=== PATIENT | male | born 1955 | race Caucasian/White ===

== ENCOUNTER 2018-05-28 08:32 | Emergency (ER) | payer BC, OTHER ==
[2018-05-28 08:42] VITALS: BP 131/79
--- NOTE | 2018-05-28 09:20 | UC ---
Abdominal Pain Male HPI - HPI Summary HPI Summary: Gradual onset of right lower quadrant abdominal pain and right flank pain 4 days ago. Getting worse especially when he lays flat on his back. Has had some mild nausea this morning and decreased appetite. No fever. Denies any urinary symptoms. No personal or family history of kidney stones of which he is aware. - History of Current Complaint Chief Complaint: UCBackPain Stated Complaint: BACK PAIN Time Seen by Provider: 05/28/18 08:47 Hx Obtained From: Patient, Family/Cardiology Specialist - Onset/Duration: Gradual Onset, Lasting Days, Still Present Timing: Constant Severity Initially: Mild Severity Currently: Moderate Pain Intensity: 7 Pain Scale Used: 0-10 Numeric Location: Discrete At: RLQ Radiates: Yes Radiates to: Flank Character: Colicy, Sharp Aggravating Factor(s): Other - LAYING SUPINE Alleviating Factor(s): Position Associated Signs And Symptoms: Positive: Back Pain, Decreased Appetite, Nausea. Negative: Fever - Allergies/Home Medications Allergies/Adverse Reactions: Allergies Allergy/AdvReac Type Severity Reaction Status Date / Time seasonal Allergy Mild Sneezing Uncoded 05/28/18 08:41 Home Medications: Home Medications Carvedilol TAB* [Coreg TAB*] 1 tab PO DAILY 05/28/18 [History Confirmed 05/28/18 ] Ranolazine (Nf) [Ranexa] 500 mg PO BID 05/28/18 [History Confirmed 05/28/18] Rosuvastatin Calcium [Crestor] 1 tab PO DAILY 05/28/18 [History Confirmed ] amLODIPine TAB* [Norvasc 5 mg TAB*] 2.5 mg PO DAILY 05/28/18 [History Confirmed 05/28/18] PMH/Surg Hx/FS Hx/Imm Hx Cardiovascular History: Cardiac Disease - 4V CABG, Hypertension, Myocardial Infarction - Surgical History Surgical History: Yes Surgery Procedure, Year, and Place: BYPASS. ORTHO SURGERIES - Family History Known Family History: Positive: Hypertension - Social History Alcohol Use: drinks 12-18 beers/week, but not daily Substance Use Type: None Smoking Status (MU): Former Smoker Type: Cigarettes Have You Smoked in the Last Year: No When Did the Patient Quit Smoking/Using Tobacco: 05/28/1997 - Immunization History Most Recent Tetanus Shot: UTD Review of Systems All Other Systems Reviewed And Are Negative: Yes Constitutional: Positive: Negative Respiratory: Positive: Negative Cardiovascular: Positive: Negative Gastrointestinal: Positive: Abdominal Pain, Nausea Genitourinary: Positive: Negative Musculoskeletal: Positive: Myalgia - RIGHT BACK PAIN Physical Exam Triage Information Reviewed: Yes Appearance: Well-Nourished, Pain Distress - MILD/MODERATE Vital Signs: Initial Vital Signs Temp 97.6 F 05/28/18 08:35 Pulse 82 05/28/18 08:35 Resp 18 05/28/18 08:35 BP 131/79 05/28/18 08:35 Pulse Ox 97 05/28/18 08:35 Laboratory Tests 05/28/18 08:55 POC Urine Color Dark yellow POC Urine Clarity Clear POC Urine pH 5.5 POC Ur Specif [place] >= 1.030 POC Urine Protein 2+ A POC Ur Glucose (UA) Negative POC Urine Ketones 1+ A POC Urine Blood Trace-intact A POC Urine Nitrite Negative POC Urine Bilirubin 2+ A POC Urine Urobilinogen 0.2 POC U Leukocyte Esteras Negative Vital Signs Reviewed: Yes Eyes: Positive: Conjunctiva Clear ENT: Positive: Hearing grossly normal Neck: Positive: Supple Respiratory: Positive: No respiratory distress, No accessory muscle use Cardiovascular: Positive: Pulses Normal Abdomen Description: Positive: Soft, Other: - RLQ TTP. NO RIGIDITY OR REBOUND. NEG OBTURATOR. EQUIVOCAL PSOAS SIGN. MILD DISCOMFORT WITH PERCUSSION OVER RLQ. Negative: CVA Tenderness (R), CVA Tenderness (L), Distended, Guarding Bowel Sounds: Positive: Present Musculoskeletal: Positive: No Edema Neurological: Positive: Alert Psychological: Positive: Normal Response To Family, Age Appropriate Behavior Skin: Negative: Rashes Abd Pain Male Course/Dx - Course Course Of Treatment: CONCERN FOR KIDNEY STONE OR APPENDICITIS. TO [facility] [place] ED BY PRIVATE CAR. PT OFFERED TRANSPORT TO THE ED BY AMBULANCE BUT DECLINES. ADVISED THAT BY NOT TRAVELING IN A MONITORED SETTING HE COULD BE RISKING WORSENING OF HIS CONDITION THAT COULD POSE A THREAT TO HIS LIFE, HEALTH AND MEDICAL SAFETY. HE VERBALIZES UNDERSTANDING AND CONTINUES TO DECLINE AMBULANCE TRANSFER. - Differential Dx/Clinical Impression Provider Diagnosis: RLQ abdominal pain Discharge - Sign-Out/Discharge Documenting (check all that apply): Patient Departure All imaging exams completed and their final reports reviewed: No Studies - Discharge Plan Condition: Stable Disposition: TRANS [facility] Patient Education Materials: Abdominal Pain (ED) Referrals: Mamadou Dobson MD [Primary Care Provider] - Additional Instructions: GO DIRECTLY TO THE [facility] [place] [facility] ED FROM HERE FOR FURTHER EVALUATION. YOU HAVE DECLINED TRANSFER TO THE ED BY AMBULANCE. BE ADVISED THAT BY NOT TRAVELING IN A MONITORED SETTING YOU COULD BE RISKING WORSENING OF YOUR CONDITION THAT COULD POSE A THREAT TO YOUR LIFE, HEALTH AND MEDICAL SAFETY. - Billing Disposition and Condition Condition: STABLE Disposition: Trans Higher Lvl of Care Fac
== END 2018-05-28 09:20 | disposition short-term general hospital (02) ==
LOC: UCEAST 08:32
DX: R10.31 Right lower quadrant pain (principal); R11.0 Nausea; R63.8 Other symptoms and signs concerning food and fluid intake; I10 Essential (primary) hypertension; I25.2 Old myocardial infarction; Z91.09 Other allergy status, other than to drugs and biological substances; Z79.899 Other long term (current) drug therapy; Z95.1 Presence of aortocoronary bypass graft; Z87.891 Personal history of nicotine dependence
CPT/HCPCS: 81003; 99212; G0463

== ENCOUNTER 2018-05-28 09:37 | Emergency (ER) | payer BC, MEDICARE ==
[2018-05-28] MEDS ORDERED: Ondansetron INJ* 2 MG/ML VIAL IV ONE (10:23)
[2018-05-28] MEDS ORDERED: Ketorolac INJ* 30 MG/ML 1 ML VIAL IV PUSH ONE (10:24)
[2018-05-28 10:30] LABS: ABS Basophils 0 10^3/ul (0-0.2); ABS Eosinophils 0.1 10^3/ul (0-0.6); ABS Monocytes 0.9 10^3/ul (0-0.8); ABS Neutrophils 4.6 10^3/ul (1.5-7.7); ABS Nucleated RBC 0 10^3/ul; Eosinophil % 1.1 %; Hematocrit 43 % (42-52); Hemoglobin 14.6 g/dl (14.0-18.0); Lymphocyte % 15.1 %; Mean Corpuscular HGB Conc 34 g/dl (31-36); Mean Corpuscular Hemoglobin 32 pg (27-31); Mean Corpuscular Volume 95 fL (80-94); Mean Platelet Volume 8.3 fL (7.4-10.4); Nucleated Red Blood Cells % 0.1; Platelet Count 167 10^3/ul (150-450); Red Blood Count 4.53 10^6/ul (4.00-5.40); Red Cell Distribution Width 12 % (10.5-15); White Blood Count 6.7 10^3/ul (3.5-10.8)
[2018-05-28 10:34] LABS: INR 0.98 (0.77-1.02)
[2018-05-28 10:48] LABS: Albumin 4.2 g/dL (3.2-5.2); Albumin/Globulin Ratio 1.4 (1-3); BUN/Creatinine Ratio 14.8 (8-20); C Reactive Protein 1.26 mg/L (<8.01); Calcium 9.7 mg/dL (8.6-10.3); EGFR African American 72.4 (>60); EGFR Non-African American 59.8 (>60); Globulin 3.1 g/dL (2-4); Magnesium 1.9 mg/dL (1.9-2.7); Potassium 4.6 mmol/L (3.5-5.0); Total Bilirubin 0.7 mg/dL (0.2-1.0); Total Protein 7.3 g/dL (6.4-8.9)
[2018-05-28 12:11] VITALS: BP 133/88
--- NOTE | 2018-05-28 12:37 | ED ---
Back Pain - HPI Summary HPI Summary: Patient is a 62-year-old male with contributory significant PMH presenting to the ED with right-sided low back pain radiating into the groin, and down the posterior thigh with some involvement to the anterior thigh 4 days. He states sitting from a lying position makes the pain worse, standing straight makes the pain better. Pain is currently rated a 9/10 intermittent, sharp throbbing and radiating. Denies any bladder or bowel dysfunction. Denies any foot drop. Denies any numbness or tingling to the ipsilateral leg. Denies any gross hematuria, UTI symptoms or left-sided back pain. No history of kidney stones. He states this happened in the past but was on the left side which resolved spontaneously. He has not tried any [id number] medications for relief. - History of Current Complaint Chief Complaint: EDFlankPain Stated Complaint: ABD PAIN Time Seen by Provider: 05/28/18 10:00 Hx Obtained From: Patient Onset/Duration: Sudden Onset Onset/Duration: Started Hours Ago Timing: Constant Back Pain Location: Is Discrete @ - right sided lower back pain Pain Intensity: 2 Pain Scale Used: 0-10 Numeric Character: Aching Aggravating Symptom(s): Movement, Lifting, Bending Alleviating Symptom(s): Rest, Position Associated Signs And Symptoms: Negative: Swelling, Redness, Bruising, Bladder Incontinence, Bowel Incontinence, Weight Loss - Risk Factors AAA Risk Factors: Negative TAD Risk Factors: Negative Cauda Equina Risk Factors: Negative Epidural Abscess Risk Factors: Negative - Allergies/Home Medications Allergies/Adverse Reactions: Allergies Allergy/AdvReac Type Severity Reaction Status Date / Time seasonal Allergy Mild Sneezing Uncoded 05/28/18 08:41 Home Medications: Home Medications Aspirin 325 mg PO DAILY 05/28/18 [History Confirmed 05/28/18] Multivitamin [Multiple Vitamins] 1 tab PO DAILY 05/28/18 [History Confirmed 06/15] Olmesartan Medoxomil [Benicar] 40 mg PO DAILY 05/28/18 [History Confirmed ] Ranolazine (NF) [Ranexa (NF)] 500 mg PO BID 05/28/18 [History Confirmed 05/28/18 ] PMH/Surg Hx/FS Hx/Imm Hx Previously Healthy: Yes Cardiovascular History: Reports: Hx Hypertension - Surgical History Surgery Procedure, Year, and Place: BYPASS. ORTHO SURGERIES - Immunization History Hx Pertussis Vaccination: No Immunizations Up to Date: Yes Infectious Disease History: No Infectious Disease History: Denies: Traveled Outside the [place] in Last 30 Days - Family History Known Family History: Positive: Hypertension - Social History Occupation: Unemployed Lives: With Family Alcohol Use: None Hx Substance Use: No Substance Use Type: Reports: None Hx Tobacco Use: Yes Smoking Status (MU): Former Smoker Type: Cigarettes Have You Smoked in the Last Year: No Review of Systems Constitutional: Negative Negative: Fever, Chills, Fatigue, Skin Diaphoresis Negative: Palpitations, Chest Pain Negative: Shortness Of Breath, Cough Genitourinary: Negative Positive: no symptoms reported, see HPI. Negative: dysuria, discharge, incontinence Positive: Arthralgia Skin: Negative Neurological: Negative All Other Systems Reviewed And Are Negative: Yes Physical Exam Triage Information Reviewed: Yes Vital Signs On Initial Exam: Initial Vitals Temp Pulse Resp BP Pulse Ox 97 F 70 18 149/90 95 05/28/18 09:43 05/28/18 09:43 05/28/18 09:43 05/28/18 09:43 05/28/18 09:43 Vital Signs Reviewed: Yes Appearance: Positive: Well-Appearing, Well-Nourished Skin: Positive: Warm, Skin Color Reflects Adequate Perfusion Head/Face: Positive: Normal Head/Face Inspection Eyes: Positive: EOMI, GORAN, Conjunctiva Clear Neck: Positive: Supple, No Lymphadenopathy Respiratory/Lung Sounds: Positive: Clear to Auscultation, Breath Sounds Present Cardiovascular: Positive: RRR, Pulses are Symmetrical in both Upper and Lower Extremities Musculoskeletal: Positive: Strength/ROM Intact Neurological: Positive: Speech Normal Psychiatric: Positive: Normal, Affect/Mood Appropriate AVPU Assessment: Alert Diagnostics - Vital Signs Vital Signs Temp Pulse Resp BP Pulse Ox 05/28/18 12:11 99.1 F 66 16 133/88 96 05/28/18 11:15 70 141/89 94 05/28/18 11:00 68 94 05/28/18 10:15 68 121/89 96 05/28/18 10:00 70 96 05/28/18 09:45 74 149/90 97 05/28/18 09:44 72 95 05/28/18 09:43 97 F 70 18 149/90 95 - Laboratory Lab Results: Lab Results 05/28/18 05/28/18 05/28/18 Range/Units 10:01 10:01 10:01 WBC 6.7 (3.5-10.8) 10^3/ul RBC 4.53 (4.00-5.40) 10^6/ul Hgb 14.6 (14.0-18.0) g/dl Hct 43 (42-52) % MCV 95 H (80-94) fL MCH 32 H (27-31) pg MCHC 34 (31-36) g/dl RDW 12 (10.5-15) % Plt Count 167 (150-450) 10^3/ul MPV 8.3 (7.4-10.4) fL Neut % (Auto) 69.8 % Lymph % (Auto) 15.1 % [place] % (Auto) 13.5 % Eos % (Auto) 1.1 % Baso % (Auto) 0.5 % Absolute Neuts (auto) 4.6 (1.5-7.7) 10^3/ul Absolute Lymphs (auto) 1.0 (1.0-4.8) 10^3/ul Absolute Monos (auto) 0.9 H (0-0.8) 10^3/ul Absolute Eos (auto) 0.1 (0-0.6) 10^3/ul Absolute Basos (auto) 0 (0-0.2) 10^3/ul Absolute Nucleated RBC 0 10^3/ul Nucleated RBC % 0.1 INR (Anticoag Therapy) 0.98 (0.77-1.02) Sodium 135 (135-145) mmol/L Potassium 4.6 (3.5-5.0) mmol/L Chloride 104 (101-111) mmol/L Carbon Dioxide 26 (22-32) mmol/L Anion Gap 5 (2-11) mmol/L BUN 18 (6-24) mg/dL Creatinine 1.22 H (0.67-1.17) mg/dL Est GFR ( Amer) 72.4 (>60) Est GFR (Non-Af Amer) 59.8 (>60) BUN/Creatinine Ratio 14.8 (8-20) Glucose 118 H (70-100) mg/dL Lactic Acid (0.5-2.0) mmol/L Calcium 9.7 (8.6-10.3) mg/dL Magnesium 1.9 (1.9-2.7) mg/dL Total Bilirubin 0.70 (0.2-1.0) mg/dL AST 23 (13-39) U/L ALT 22 (7-52) U/L Alkaline Phosphatase 59 (34-104) U/L Total Creatine Kinase 54 (10-223) U/L C-Reactive Protein 1.26 (<8.01) mg/L Total Protein 7.3 (6.4-8.9) g/dL Albumin 4.2 (3.2-5.2) g/dL Globulin 3.1 (2-4) g/dL Albumin/Globulin Ratio 1.4 (1-3) Lipase 24 (11.0-82.0) U/L 05/28/18 Range/Units 10:01 WBC (3.5-10.8) 10^3/ul RBC (4.00-5.40) 10^6/ul Hgb (14.0-18.0) g/dl Hct (42-52) % MCV (80-94) fL MCH (27-31) pg MCHC (31-36) g/dl RDW (10.5-15) % Plt Count (150-450) 10^3/ul MPV (7.4-10.4) fL Neut % (Auto) % Lymph % (Auto) % [place] % (Auto) % Eos % (Auto) % Baso % (Auto) % Absolute Neuts (auto) (1.5-7.7) 10^3/ul Absolute Lymphs (auto) (1.0-4.8) 10^3/ul Absolute Monos (auto) (0-0.8) 10^3/ul Absolute Eos (auto) (0-0.6) 10^3/ul Absolute Basos (auto) (0-0.2) 10^3/ul Absolute Nucleated RBC 10^3/ul Nucleated RBC % INR (Anticoag Therapy) (0.77-1.02) Sodium (135-145) mmol/L Potassium (3.5-5.0) mmol/L Chloride (101-111) mmol/L Carbon Dioxide (22-32) mmol/L Anion Gap (2-11) mmol/L BUN (6-24) mg/dL Creatinine (0.67-1.17) mg/dL Est GFR ( Amer) (>60) Est GFR (Non-Af Amer) (>60) BUN/Creatinine Ratio (8-20) Glucose (70-100) mg/dL Lactic Acid 0.9 (0.5-2.0) mmol/L Calcium (8.6-10.3) mg/dL Magnesium (1.9-2.7) mg/dL Total Bilirubin (0.2-1.0) mg/dL AST (13-39) U/L ALT (7-52) U/L Alkaline Phosphatase (34-104) U/L Total Creatine Kinase (10-223) U/L C-Reactive Protein (<8.01) mg/L Total Protein (6.4-8.9) g/dL Albumin (3.2-5.2) g/dL Globulin (2-4) g/dL Albumin/Globulin Ratio (1-3) Lipase (11.0-82.0) U/L Result Diagrams: 05/28/18 10:01 05/28/18 10:01 Lab Statement: Any lab studies that have been ordered have been reviewed, and results considered in the medical decision making process. Back Pain Course/Dx - Course Course Of Treatment: During the course of treatment of the patient's evaluated for right-sided flank pain radiating into the groin. CT abdomen and pelvis obtained which shows no nephrolithiasis or hydronephrosis. Upon further examination, it appears the patient has pain radiating to the anterior and posterior thigh as well as into the groin. Worse with sitting up, better with lying flat. After given Toradol in the ED, patient feels improved. He will be diagnosed with sciatica, lumbar radiculopathy. He is encouraged continuing the Toradol 4 days, prednisone 5 days and moist heat to the area. He will return if he develops any other symptoms. UA shows trace blood. - Diagnoses Provider Diagnoses: Lumbar radicular pain Discharge - Sign-Out/Discharge Documenting (check all that apply): Patient Departure - Discharge Plan Condition: Stable Disposition: HOME Prescriptions: Ketorolac TAB * [Toradol TAB *] 10 mg PO Q6H #16 tab predniSONE TAB* [Deltasone TAB*] 50 mg PO DAILY #5 tab Patient Education Materials: Lumbar Radiculopathy (ED), Lower Back Exercises ( ED) Referrals: Mamadou Dobson MD [Primary Care Provider] - Additional Instructions: Moist heat to the area Gentle stretches Prednisone once daily x 5 days Toradol four times daily (take next dose at approximately 2pm) DO NOT TAKE IBUPROFEN/NAPROXEN OR OTHER NSAIDS WHILE TAKING THIS MEDICATION - Billing Disposition and Condition Condition: STABLE Disposition: Home
== END 2018-05-28 12:10 | disposition home or self-care (01) ==
LOC: ED 09:37
DX: M54.5 Low back pain (principal); Z87.891 Personal history of nicotine dependence; R16.0 Hepatomegaly, not elsewhere classified; I70.90 Unspecified atherosclerosis; Z79.82 Long term (current) use of aspirin; I10 Essential (primary) hypertension
CPT/HCPCS: 36415; 74176; 80053; 82550; 83605; 83690; 83735; 85025; 85610; 86140; 96374; 96375; 99283; J1885; J2405

== ENCOUNTER 2018-11-11 18:43 | Inpatient (IN) | payer BC, MEDICARE ==
[2018-11-11] MEDS ORDERED: Aspirin 81 mg CHEW TAB* 81 MG TAB.CHEW PO ONE (18:49)
[2018-11-11] MEDS ORDERED: Heparin for STEMI(*) 5,000 UNITS/ML 1 ML VIAL IV ONE ×2 (18:49→18:52)
[2018-11-11] MEDS ORDERED: Ticagrelor* 90 MG TAB PO ONE ×2 (18:49→18:52)
--- NOTE | 2018-11-11 18:53 | ED ---
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 Per EMS: Patient was at dinner, having a beer, when he had sudden- onset CP radiating across his chest, to his shoulder, and to his teeth and jaw. Pert PMHx: MD in 2008, CABG and multiple stents treated in [place]. Associated sx : diaphoresis. His sx tonight are not as bad in 2008. EMS gave patient fluids and aspirin [address] Dobson is his PCP. 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 Gill, cardio, previously. ED provider met patient and EMS immediately upon arrival. - History of Current Complaint Hx Obtained From: Patient Onset/Duration: Started Minutes Ago, Atraumatic, Still Present Timing: Constant Current Severity: Severe Pain Intensity: 8 Pain Scale Used: 0-10 Numeric Chest Pain Location: Diffuse - across chest Chest Pain Radiates: Yes Chest Pain Radiates To:: Shoulder, Jaw, Other - teeth Character: Crushing Alleviating Factor(s): Other: - morphine in ED Associated Signs and Symptoms: Positive: Diaphoresis - Allergy/Home Medications Allergies/Adverse Reactions: Allergies Allergy/AdvReac Type Severity Reaction Status Date / Time seasonal Allergy Mild Sneezing Uncoded 05/28/18 08:41 Home Medications: Home Medications Montelukast Sodium TAB* [Singulair TAB*] 10 mg PO DAILY 11/11/18 [History Confirmed 11/11/18] PMH/Surg Hx/FS Hx/Imm Hx Previously Healthy: No Cardiovascular History: Reports: Hx Hypertension, Hx Myocardial Infarction, Other Cardiovascular Problems/Disorders - CABG, stents - Surgical History Surgery Procedure, Year, and Place: BYPASS. ORTHO SURGERIES - Family History Known Family History: Positive: Hypertension - Social History Occupation: Employed Full-time Lives: With Family Alcohol Use: None Hx Substance Use: No Substance Use Type: Reports: None Hx Tobacco Use: Yes Smoking Status (MU): Former Smoker Type: Cigarettes Have You Smoked in the Last Year: No Review of Systems Positive: Skin Diaphoresis Positive: Chest Pain Musculoskeletal: Other - pos: jaw/teeth pain, shoulder pain - radiating from chest All Other Systems Reviewed And Are Negative: Yes Physical Exam - Summary Physical Exam Summary: Appearance: The patient is well-nourished in no acute distress and in no acute pain. Skin: The skin is warm, diaphoretic, and skin color reflects adequate perfusion. HEENT: The head is normocephalic and atraumatic. The pupils are equal and reactive. The conjunctivae are clear and without drainage. Nares are patent and without drainage. Mouth reveals moist mucous membranes and the throat is without erythema and exudate. The external ears are intact. The ear canals are patent and without drainage. The tympanic membranes are intact. Neck: the neck is supple with full range of motion and non-tender. There are no carotid bruits. There is no neck vein distension. Respiratory: Chest is non-tender. Lungs are clear to auscultation and breath sounds are symmetrical and equal. Cardiovascular: Heart is regular rate and rhythm. There is no murmur or rub auscultated. There is no peripheral edema and pulses are symmetrical and equal. Abdomen: The abdomen is soft and non-tender. There are normal bowel sounds heard in all four quadrants and there is no organomegaly palpated. Musculoskeletal: There is no back tenderness noted. Extremities are non-tender with full range of motion. There is good capillary refill. There is no peripheral edema or calf tenderness elicited. Neurological: Patient is alert and oriented to person, place and time. The patient has symmetrical motor strength in all four extremities. Cranial nerves are grossly intact. Deep tendon reflexes are symmetrical and equal in all four extremities. Psychiatric: The patient has an appropriate affect and does not exhibit any anxiety or depression. Triage Information Reviewed: Yes Vital Signs Reviewed: Yes Diagnostics - Laboratory Result Diagrams: 11/11/18 18:54 11/11/18 18:54 Lab Statement: Any lab studies that have been ordered have been reviewed, and results considered in the medical decision making process. - EKG 1842 Cardiac Rate: NL - 70 bpm EKG Rhythm: Sinus Rhythm Summary of EKG Findings: ST elevation in inferior leads suggestive of acute injury. Chest Pain Course/Dx - Course Course Of Treatment: A STEMI was called from the field based on EKG and report by the EMS. On arrival he was diaphoretic but stable. EKG showed inferior injury possibly STEMI. He was given STEMI medications and Dr. Coleman arrived and took him to the catheter unit. - Diagnoses Provider Diagnoses: STEMI (ST elevation myocardial infarction) During the Visit The Following Alert/Code Occurred: STEMI - Called at 1834, EMS six minutes out. - Provider Notifications Discussed Care Of Patient With: Catracho Coleman - cardio Time Discussed With Above Provider: 18:40 Instructed by Provider To: Other - Discussing case. Pt has not arrived yet. EKG en route by EMS is suggestive of inferior MD. Consulted again at 1904: Will take patient to catheter builder. - Critical Care Time Critical Care Time: 30-74 min Discharge - Sign-Out/Discharge Documenting (check all that apply): Patient Departure - ADMIT - catheter builder All imaging exams completed and their final reports reviewed: No - CXR pending Patient Received Moderate/Deep Sedation with Procedure: No - Discharge Plan Condition: Good Disposition: ADMITTED TO [facility] - Billing Disposition and Condition Condition: GOOD Disposition: Admitted to [facility] - Attestation Statements Document Initiated by Scribe: Yes Documenting Scribe: Isra Villafuerte Provider For Whom Scribe is Documenting (Include Credential): Dr. Freddy Amadro MD Scribe Attestation: I, Isra Villafuerte scribed for Dr. Freddy Amador MD on 11/11/18 at 1934. Scribe Documentation Reviewed: Yes Provider Attestation: The documentation as recorded by the Isra de leon accurately reflects the service I personally performed and the decisions made by me, Dr. Freddy Amador MD Status of Scribe Document: Viewed
[2018-11-11] MEDS ORDERED: Morphine 4 MG/ML VIAL (1 ml) 4 MG/ML VIAL IV ONE ×2 (18:59→19:12)
[2018-11-11] MEDS ORDERED: Morphine 4 MG/ML VIAL (1 ml) 4 MG/ML VIAL ONE (18:59)
[2018-11-11 19:02] LABS: ABS Basophils 0.1 10^3/ul (0-0.2); ABS Eosinophils 0.2 10^3/ul (0-0.6); ABS Lymphocytes 1.2 10^3/ul (1.0-4.8); ABS Monocytes 1.2 10^3/ul (0-0.8); ABS Neutrophils 3.5 10^3/ul (1.5-7.7); Eosinophil % 2.5 %; Hematocrit 42 % (42-52); Hemoglobin 14.8 g/dL (14.0-18.0); Lymphocyte % 19.7 %; Mean Corpuscular HGB Conc 35 g/dL (31-36); Mean Corpuscular Hemoglobin 33 pg (27-31); Mean Corpuscular Volume 95 fL (80-94); Mean Platelet Volume 8.5 fL (7.4-10.4); Platelet Count 159 10^3/uL (150-450); Red Blood Count 4.44 10^6 /uL (4.18-5.48); Red Cell Distribution Width 13 % (10-15); White Blood Count 6.2 10^3/uL (3.5-10.8)
[2018-11-11 19:11] LABS: Activated Partial Thrombo Time 18.9 seconds (26.0-38.0); INR 1.15 (0.82-1.09)
[2018-11-11 19:19] LABS: ALT 26 U/L (7-52); Albumin 4.3 g/dL (3.2-5.2); Albumin/Globulin Ratio 1.3 (1-3); Alkaline Phosphatase 59 U/L (34-104); BUN/Creatinine Ratio 14.5 (8-20); Blood Urea Nitrogen 16 mg/dL (6-24); CO2 Carbon Dioxide 26 mmol/L (22-32); Calcium 9.5 mg/dL (8.6-10.3); Chloride 104 mmol/L (101-111); Creatine Kinase 72 U/L (10-223); EGFR African American 81.3 (>60); EGFR Non-African American 67.2 (>60); Globulin 3.2 g/dL (2-4); Glucose 106 mg/dL (70-100); LDL Cholesterol Direct 43 mg/dL; Sodium 137 mmol/L (135-145); Total Protein 7.5 g/dL (6.4-8.9)
[2018-11-11 19:22] LABS: Troponin I 0.01 ng/mL (<0.04)
[2018-11-11 19:24] LABS: CKMB ng/mL 1.7 ng/mL (0.6-6.3)
[2018-11-11] MEDS ORDERED: Midazolam* 1 MG/ML 5 ML VIAL (5 MG) ONE (19:28)
[2018-11-11] MEDS ORDERED: fentaNYL* 50 MCG/ML 2 ML VIAL (100 MCG VIAL) ONE (19:28)
[2018-11-11 19:33] LABS: Anion Gap 7 mmol/L (2-11)
[2018-11-11] MEDS ORDERED: nitroGLYCERIN DRIP* 25,000 MCG/250 ML BTL ONE (20:00)
[2018-11-11] MEDS ORDERED: Bivalirudin(*) 250 MG VIAL ONE ×2 (20:08→20:10)
[2018-11-11] MEDS ORDERED: Iohexol 350 (CONTRAST) 200 ML MDV IV ONE (20:29)
[2018-11-11] MEDS ORDERED: Adenosine* 3 MG/ML VIAL ONE (20:49)
[2018-11-11] MEDS ORDERED: NitroPRUSSide* 25 MG/ML 2 ML VIAL IV ONE (20:52)
[2018-11-11] MEDS ORDERED: Docusate CAP* 100 MG PO PRN (21:30)
[2018-11-11] MEDS ORDERED: Zolpidem TAB* 5 MG PO PRN (21:30)
[2018-11-11] MEDS ORDERED: oxyCODONE/Acetamin 5/325 MG* TAB PO PRN (21:30)
[2018-11-11] MEDS ORDERED: Nitroglycerin TAB 0.4 MG* 0.4 MG TAB SL PRN (21:30)
[2018-11-11] MEDS ORDERED: nitroGLYCERIN DRIP* 25,000 MCG/250 ML BTL IV SCH (22:00)
[2018-11-11] MEDS: NS 0.9% 1000 ML** 1,000 ML IV SCH (22:00)
[2018-11-11] MEDS ORDERED: Ezetimibe TAB* 10 MG PO ONE (22:30)
[2018-11-11] MEDS: Carvedilol TAB* 25 MG PO SCH (22:42)
[2018-11-11] MEDS: CMCS: Ranolazine (NF) 500 MG TAB PO SCH (22:42)
[2018-11-11 23:08] LABS: Creatine Kinase 367 U/L (10-223); Potassium Redraw 4.1 mmol/L (3.5-5.0)
[2018-11-11 23:14] LABS: CKMB ng/mL 61.9 ng/mL (0.6-6.3)
[2018-11-11 23:16] LABS: Troponin I 6.22 ng/mL (<0.04)
[2018-11-12] MEDS ORDERED: Ondansetron INJ* 2 MG/ML VIAL ONE (00:41)
[2018-11-12] MEDS ORDERED: Ondansetron INJ* 2 MG/ML VIAL IV PRN (00:44)
[2018-11-12] MEDS: Acetaminophen TAB* 325 MG PO PRN ×2 (04:13→16:16)
[2018-11-12 04:28] LABS: ABS Basophils 0.1 10^3/ul (0-0.2); ABS Lymphocytes 0.9 10^3/ul (1.0-4.8); ABS Monocytes 1.1 10^3/ul (0-0.8); ABS Neutrophils 5.4 10^3/ul (1.5-7.7); Eosinophil % 0.5 %; Hematocrit 40 % (42-52); Hemoglobin 13.7 g/dL (14.0-18.0); Lymphocyte % 11.9 %; Mean Corpuscular HGB Conc 34 g/dL (31-36); Mean Corpuscular Hemoglobin 33 pg (27-31); Mean Corpuscular Volume 96 fL (80-94); Mean Platelet Volume 8.2 fL (7.4-10.4); Platelet Count 133 10^3/uL (150-450); Red Blood Count 4.17 10^6 /uL (4.18-5.48); Red Cell Distribution Width 13 % (10-15); White Blood Count 7.5 10^3/uL (3.5-10.8)
[2018-11-12 04:44] LABS: ALT 28 U/L (7-52); AST 71 U/L (13-39); Albumin/Globulin Ratio 1.4 (1-3); Alkaline Phosphatase 57 U/L (34-104); Anion Gap 6 mmol/L (2-11); BUN/Creatinine Ratio 14.6 (8-20); Blood Urea Nitrogen 12 mg/dL (6-24); CO2 Carbon Dioxide 23 mmol/L (22-32); Calcium 8.8 mg/dL (8.6-10.3); Chloride 106 mmol/L (101-111); Cholesterol 96 mg/dL; Creatine Kinase 441 U/L (10-223); EGFR African American 114.1 (>60); EGFR Non-African American 94.3 (>60); Globulin 2.8 g/dL (2-4); Glucose 137 mg/dL (70-100); HDL Cholesterol 34.1 mg/dL; LDL Cholesterol 31 mg/dL; Sodium 135 mmol/L (135-145); Total Protein 6.8 g/dL (6.4-8.9); Triglycerides 156 mg/dL
[2018-11-12 04:48] LABS: CKMB ng/mL 95.2 ng/mL (0.6-6.3)
[2018-11-12 04:53] LABS: Troponin I 12.99 ng/mL (<0.04)
[2018-11-12] MEDS: Ticagrelor* 90 MG TAB PO SCH ×2 (04:57→21:20)
[2018-11-12] MEDS: NS 0.9% 1000 ML** 1,000 ML IV SCH (07:34)
--- NOTE | 2018-11-12 08:59 | HP ---
CC: Dr. Mamadou Dobson; Dr. Sterling Bell [employer] in [place], [place] ADMISSION HISTORY AND PHYSICAL: DATE OF ADMISSION: 11/11/18 CHIEF COMPLAINT: The patient with onset of severe chest discomfort. HISTORY OF PRESENT ILLNESS: The patient is a 63-year-old gentleman with a prior history of an inferi or wall myocardial infarction back in 2007, transferred from [facility] and underwent intervention into the right coronary artery at that time. 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 The patient had done reasonably well, but approximately 4 weeks ago he started having recurrent episo andrew of chest discomfort if he exerts himself that will go to the left shoulder somewhere to the back and occasionally to the jaw. It would go away if he stopped to doing activity. It became more accel erated in its pattern taking less to bring it on and perhaps lasting longer. On the day of admission , he was just sitting, drinking beer with a friend and had severe onset of chest discomfort. EMS was called. EKG showed mild ST segment elevation in the inferior leads and a STEMI alert was called. I n the emergency room, repeat EKG demonstrated the mild ST segment elevation in the inferior leads wit h reciprocal changes in aVL. The patient still has significant chest discomfort at present. The risk s and benefits of cardiac cardiac catheterization and intervention were explained to him and he under stood them and wished to proceed. In the emergency room, he was given 4000 units of heparin 180 mg, Brilinta, and had already received the aspirin 325 mg. PAST MEDICAL HISTORY: Past medical history as well could be obtained in an emergent situation includ es a history of hypertension, hyperlipidemia. He had a sinus condition. He denied any diabetes. REVIEW OF SYSTEMS: Pertinent to proceeding to the cardiovascular lab: No history of significant ble eding. No history of TIA or stroke. No history of renal insufficiency. No contrast allergy. PHYSICAL EXAMINATION VITAL SIGNS: When I saw him revealed the patient's blood pressure 154/95, pulse 69, O2 saturation 10 0%, respirations 12, still having ongoing chest into left shoulder discomfort. NECK: Supple without increased JVP. LUNGS: Clear. HEART: Heart had a regular rate and rhythm. I could not appreciate any significant systolic or saul tolic murmur. ABDOMEN: Obese, soft, nontender. EXTREMITIES: Without edema. Peripheral pulses intact. NEURO: The patient is alert and oriented with normal mentation. MUSCULOSKELETAL: The patient moves all extremities, appropriate. PSYCHOLOGICAL: The patient with appropriate affect for his condition. DIAGNOSTIC STUDIES/LAB DATA: Laboratory results pending at that time. Chest x-ray, official reading was not available. The risks and benefits of cardiac catheterization w ere explained. He understood and has been familiar with him from all the procedures he had. He wish ed to proceed for the cardiovascular laboratory. ASSESSMENT: Inferior wall ST elevation myocardial infarction with history of prior bypass surgery an d PCI. PLAN: Cardiac catheterization, possible PCI. Further management pending results of the cardiac cath eterization. ADDENDUM: Of note, I was able to try to call a upsetting machine operator at [facility] as I was proceeding to e cardiovascular laboratory and he had revealed to me information stating that the patient had last p rocedure done [id number] ago and at that time a cardiac catheterization in April 2017 had dem onstrated patent SHARMA and EMIR graft. A patent vein graft to the diagonal branch with some mild-to- moderate disease. The vein graft to the right coronary artery was reported as diffusely diseased att aching to the PDA, but no further comments were given describing that vessel. We will still awaiting on the bypass report by the time of going to the cardiac catheterization as that was unavailable. [id number]/[facility] #: [id number]
[2018-11-12] MEDS: Losartan TAB* 25 MG PO SCH (09:04)
[2018-11-12] MEDS: CMCS: Ranolazine (NF) 500 MG TAB PO SCH ×2 (09:05→21:20)
[2018-11-12] MEDS: Carvedilol TAB* 25 MG PO SCH ×2 (09:05→21:20)
[2018-11-12] MEDS: CMCS: Rosuvastatin (NF) 20 MG TAB PO SCH (09:05)
[2018-11-12] MEDS: Aspirin 81 mg CHEW TAB* 81 MG TAB.CHEW PO SCH (09:05)
[2018-11-12] MEDS: amLODIPine TAB* 5 MG PO SCH (09:05)
[2018-11-12] MEDS ORDERED: Perflutren Lipid Microsphere* 3 ML VIAL ONE (10:50)
[2018-11-12 11:45] LABS: CKMB ng/mL 72.1 ng/mL (0.6-6.3)
[2018-11-12 11:48] LABS: Troponin I 12.11 ng/mL (<0.04)
--- NOTE | 2018-11-12 12:08 | ECHO ---
*[facility]* [place] [address] Fax #: [phone] Transthoracic Echocardiogram Patient: Vianca, Height: 72 in / Carlos A 182.9 cm : 1955 Weight: 260.5 lb / Study Date: 11/12/2018 118.4 kg Age: 63 BP: 140 / 93 Gender: M BMI/BSA: 35.4 kg/m^2 HR: 66 bpm / 2.39 m^2 *Keg Raiser: * Luz Rosenberg [facility] *Referring Physician: * Catracho Coleman MD *Reading Physician: * Kamaljit Gill MD Indications: Myocardial Infarction (new). History: Coronary artery disease. PMH: Myocardial infarction. Risk factors: Current tobacco use. Hypertension. Obese. Hyperlipidemia. Labs, prior tests, procedures, and surgery: Catheterization. Performed during the current admission. There was a stenosis which was treated with a stent. Coronary artery bypass grafting. Conclusions Summary: 1. Left ventricle: There is mild concentric hypertrophy. Systolic function is at the lower limits of normal. The estimated ejection fraction is 45-50%. Hypokinesis of the basal-midinferolateral myocardium. Hypokinesis of the basal-midinferior myocardium. 2. Right ventricle: Systolic function is mildly reduced. 3. Ventricular septum: There is septal flattening of the interventricular septum consistent with RV volume or pressure overload. 4. Mitral valve: There is trace regurgitation. 5. Aortic valve: There is no evidence of stenosis. There is no significant regurgitation. 6. Tricuspid valve: There is physiologic regurgitation. 7. Pericardium, extracardiac: There is no pericardial effusion. 8. Pulmonary arteries: Systolic pressure can not be accurately estimated. 9. Study data: No prior study is available for comparison. Study data: Transthoracic echocardiogram. Procedure: Transthoracic echocardiography was performed. Image quality was suboptimal. Intravenous Definity , 5.5 mlswas administered. Complete 2D, spectral Doppler, and color flow Doppler. Location: ICU Patient status: Inpatient. Patient room number: ICU-7. No prior study is available for comparison. Rhythm: Normal sinus rhythm with PVC's. Findings Left ventricle: The cavity size is normal. There is mild concentric hypertrophy. Systolic function is at the lower limits of normal. The estimated ejection fraction is 45-50%. Regional wall motion abnormalities: Hypokinesis of the basal-midinferolateral myocardium. Hypokinesis of the basal-midinferior myocardium. There is no consistent Doppler evidence of clinically significant diastolic dysfunction. Right ventricle: Not well visualized. The cavity size is mildly dilated. Systolic function is mildly reduced. Systolic pressure cannot be accurately determined, but appears to be increased. Ventricular septum: There is septal flattening of the interventricular septum consistent with RV volume or pressure overload. Left atrium: The atrium is mildly dilated. Right atrium: The atrium is moderately dilated. Mitral valve: The leaflets are mildly thickened. There is no evidence of stenosis. There is trace regurgitation. Aortic valve: The valve is trileaflet. The leaflets are mildly thickened. There is no evidence of stenosis. There is no significant regurgitation. Tricuspid valve: Not well visualized. There is no evidence of stenosis. There is physiologic regurgitation. Pulmonic valve: Not well visualized. The leaflets are normal thickness. There is no evidence of stenosis. There is trace regurgitation. Aorta: Ascending aorta: The ascending aorta is appears normal. Aortic arch: The aortic arch is appears normal. The aortic root is not dilated. Pericardium: A prominent pericardial fat pad is present. There is no pericardial effusion. Pulmonary arteries: Not well visualized. Systolic pressure can not be accurately estimated. Systemic veins: Inferior vena cava: The vessel is dilated. The respirophasic diameter changes are in the normal range (>= 50%). Measurements Left ventricle Value Ref Aortic valve Value Ref SCAR, LAX 4.4 cm 4.2 - 5.8 Breanna diam, ED 2.4 cm ---- ESD, LAX 3.8 cm 2.5 - 4.0 Peak v, S 1.14 m/sec ---- FS, LAX (L) 14 % 25 - 43 VTI, S 24.1 cm ---- PW, ED, LAX (H) 1.3 cm 0.6 - 1.0 Mean grad, S 3.0 mm Hg ---- FS (L) 14 % 25 - 43 Peak grad, S 5.0 mm Hg ---- PW, ED (H) 1.3 cm 0.6 - 1.0 LVOT/AV, VTI ratio 0.75 ---- E', lat breanna, TDI (L) 9.0 cm/sec >=10.0 E/e', lat breanna, 8 Mitral valve Value Ref TDI Peak E 0.76 m/sec ---- E', med breanna, TDI 8.1 cm/sec >=7.0 Peak A 0.6 m/sec -- -- E/e', med breanna, 9 Decel time 187 ms ---- TDI Peak grad, D 2.3 mm Hg ---- E', avg, TDI 8.6 cm/sec Peak E/A ratio 1.3 ---- E/e', avg, TDI 9 <=14 Pulmonic valve Value Ref LVOT Value Ref Peak v, S 1.04 m/sec ---- Peak bessie, S 0.78 m/sec Peak grad, S 4.0 mm Hg ---- VTI, S 18.0 cm Mean grad, S 1 mm Hg Aortic root Value Ref Root diam 3.3 cm <4.4 Ventricular septum Value Ref IVS, ED (H) 1.4 cm 0.6 - 1.0 Ascending aorta Value Ref AAo AP diam, S 3.5 cm ---- Right ventricle Value Ref SCAR, LAX 3.7 cm Aortic arch Value Ref SCAR minor ax, A4C (H) 4.6 cm 1.9 - 3.5 Arch diam 2.2 cm ---- mid Decending aorta Value Ref Left atrium Value Ref Jose peak bessie 0.59 m/sec ---- AP dim, ES (H) 4.70 cm 3.00 - 4.00 Inferior vena cava Value Ref ML dim, A4C 4.4 cm Diam 3.1 cm ---- SI dim, A4C 5.8 cm Vol/bsa, ES, 1-p 27 ml/m^2 12 - 37 A4C Vol/bsa, ES, A/L (H) 37 ml/m^2 16 - 34 Right atrium Value Ref SI dim, ES (H) 6.5 cm 3.4 - 5.3 ML dim, ES, A4C (H) 5.6 cm 2.6 - 4.4 SI dim, ES, A4C (H) 6.5 cm 3.4 - 5.3 Estimated RAP 8 mm Hg Legend: (L) and (H) gus values outside specified reference range. Prepared and electronically signed by Kamaljit Gill MD 11/12/2018 12:07
[2018-11-12] MEDS: Ezetimibe TAB* 10 MG PO SCH (17:19)
--- NOTE | 2018-11-12 18:50 | CATH ---
CC: Dr. Mamadou Dobson; Dr. Sterling Bell, stock selector, [place], [place]* CARDIAC CATHETERIZATION AND INTERVENTIONAL REPORT: DATE OF PROCEDURE: 11/12/18 - Inpatient, room 441-02. INDICATION FOR THE PROCEDURE: The patient presents with an acute ST segment elevation inferior wall myocardial infarction with history of coronary artery disease status post stents placed in 2007 for an acute inferior wall myocardial infarction and bypass surgery in 2008 with a vein graft to a PDA, vein graft to diagonal branch, SHARMA graft to LAD with a free pedicle EMIR attached to the SHARMA graft to a second obtuse marginal branch. PROCEDURES: Coronary arteriography, vein graft arteriography to the right posterior descending artery, vein graft arteriography to the diagonal branch, SHARMA graft arteriography to the LAD with a free pedicle EMIR graft to second obtuse marginal branch, left ventriculography, balloon angioplasty and placement of a 4.0 x 24 mm long Synergy drug-eluting stent in the mid portion of the vein graft to the right coronary artery, placement of a 4.0 x 38 mm long Synergy drug-eluting stent in the proximal portion of the vein graft to the right coronary artery, Mynx closure device. CONSENT: The patient was interviewed and examined in the emergency room where the risks and benefits were explained and he understood them and wished to proceed. APPROACH UTILIZED: In light of the SHARMA graft, the right femoral artery approach was utilized. EQUIPMENT UTILIZED: 1. Right femoral artery sheath was a 6.5-[place] Merit Prelude sheath. 2. Diagnostic guidewire utilized was a 260 length exchange J-tip guidewire. 3. Diagnostic coronary catheters: A 5-[place] FL4 and 5-Tu[place]uan FR4 curved catheter. 4. Diagnostic catheter for vein graft to right coronary PDA - a 5-Tu[place] multipurpose catheter. 5. Diagnostic catheter for SHARMA graft arteriography: A SHARMA SIDRA catheter, a 5 - [place]. 6. Vein graft arteriography to the diagonal branch - utilized the 5-[place] FR4 curve catheter. 7. Interventional wire utilized - a 190 cm length filter wire easy 3.5 to 5.5 catheter was utilized. 8. Stents deployed: A 4.0 x 24, 4.0 x 38 Synergy drug-eluting stent. 9. Post stent deployment balloon catheter - a 4.0 x 20 mm long NC Emerge balloon. 10. Initial balloon angioplasty catheter utilized in vein graft - a 2.5 x 15 mm long Emerge balloon. 11. Interventional wire post stent deployment utilized - a 300 cm length All Star wire. 12. A micro catheter for delivery of distal adenosine - 150 cm Finecross catheter. MEDICATIONS GIVEN DURING THE PROCEDURE: Included a total heparin of 8000 units , Angiomax bolus and Angiomax drip, Versed 1 mg and fentanyl 25 mcg, intraarterial nitroglycerin 100 mcg, intra-vein graft adenosine total of 144 mcg. DESCRIPTION OF PROCEDURE: The patient was brought to the cardiovascular laboratory, where a formal time-out was performed. He was prepped and draped in sterile fashion. The right femoral artery area was anesthetized with 1% lidocaine. Right femoral artery was cannulated with an anterior wall only stick and the sheath was placed. Coronary arteriography was performed followed by vein graft arteriography to the diagonal branch, vein graft arteriography to the right coronary artery and SHARMA graft arteriography. Left heart catheterization was then performed and left ventriculography was performed utilizing a total of 28 cc of Omnipaque dye at a rate of 14 cc/sec. Following this, the decision was made to intervene into the totally occluded vein graft to the right coronary artery PDA, as the patient continued to have chest discomfort and significant ST segment elevation inferiorly. ACT was checked after receiving a total of 8000 units of heparin and still was subtherapeutic and as such, Angiomax bolus and Angiomax drip was started. Of note, the patient had already received Brilinta 180 mg therapy in the emergency room. The filter wire was advanced through the total occluded area and deployed in the mid to distal area. Following this, balloon angioplasty was performed utilizing the 2.5 x 50 mm long Emerge balloon. This restored flow down the vein graft and showed significant stenosis in the area where balloon dilatation was performed. It was then noted that the whole vein graft itself was diffusely diseased clearly proximally significantly as well as distally leading to the PDA. There was no good landing site in the distal vein graft in order to cover the whole vein graft. As such, stenting was performed to the mid segment utilizing the 4.0 x 24 mm long Synergy drug eluting stent into the proximal area utilizing the 4.0 x 38 mm long Synergy drug eluting stent. Both areas were dilated to high pressure with a 4.0 x 20 mm long NC Emerge balloon to obtain 4.2 mm. Following this, the filter wire was removed. Attempts were then made to try to advance. Because of transient slower flow, the exchange length All Star wire was advanced down the vein graft and over that the microcatheter was advanced and then adenosine was given through the microcatheter with good return of SINTIA-3 flow. Of note, attempts were then made to advance this guidewire into the [place] PDA so as to consider delivering a stent to the distal portion of the vein graft; however, realizing no protection system would be available to prevent distal embolization, but the guidewire could not be advanced through the diffuse disease in the distal area and as such, this portion of the artery remained with significant disease. At the end of the case, the Angiomax was continued and the injection was made into right femoral artery sheath. It was found to be acceptable for delivery of a closure device and as such, a Mynx closure device was utilized. The total contrast use was 250 cc of Omnipaque dye. The radiation exposure included 31.8 minutes of fluoro time. The air kerma radiation was 3391 milligray. The DAP radiation was 27,243 microgray per meter square. RESULTS: HEMODYNAMIC DATA: - Left heart catheterization - revealed central aortic pressure of 152/87 with a mean of 116. Left ventricular pressure 143 over left ventricular end- diastolic pressure of 28. LEFT VENTRICULOGRAPHY: - Performed in the HADLEY projection revealed area of moderate hypokineses to the mid inferior wall but preservation of the anterior wall. The apical region and distal inferior wall as well as the proximal inferior wall. Overall ejection fraction estimated to be 45% to 50%. There was no significant mitral regurgitation identified. CORONARY ARTERIOGRAPHY: A. Left coronary artery: 1. Left main - widely patent. 2. Left anterior descending artery - the left anterior descending artery supplied a first moderate sized diagonal branch and traversed to the apical region and onto the distal inferior wall. The proximal to mid portion of left anterior descending artery showed a luminal caliber change of approximately 40% to 45%. The mid segment of the LAD had a hazy area of narrowing that appeared to be 50%. There was competitive flow seen to the SHARMA graft from the eyak LAD. The first diagonal branch appeared to have very diffuse disease seen in its origin from the LAD when viewed in the HADLEY collateral projection. The degree of luminal narrowing there appeared to be 70%. Past this point, in the mid portion there appeared to be an area where the vein may have been attached to it with mild retrograde filling into the vein but no true evidence of significant competitive flow down this diagonal branch. 3. Circumflex artery - a nondominant vessel supplying a high first obtuse marginal branch which traversed across the upper to mid posterior wall. The continuation of the circumflex supplied a second obtuse marginal branch. There appeared to be competitive flow in its mid portion. Past this point was a last , somewhat smaller caliber low lying obtuse marginal branch. The proximal to mid portion of the circumflex had a mild narrowing of 35%. B. Right coronary artery - a dominant vessel with multiple acute marginal branches with two posterior left ventricular branches. There does not appear to be a PDA and if present, it appears to have a flush occlusion within the area of prior stent placement. The stents in the proximal mid and distal portion have mild/mild to moderate in-stent restenosis but no significant lesions are seen throughout the whole distribution of this vessel. VEIN GRAFT ARTERIOGRAPHY TO DIAGONAL BRANCH: - No true ostium was well visualized for this vein graft, but there appeared to be an area of flush occlusion in the area of markers for the vein graft to the diagonal branch suggesting the vein graft was totally occluded at its ostium. VEIN GRAFT ARTERIOGRAPHY TO RIGHT SIDED POSTERIOR DESCENDING ARTERY: - The vein graft was noted to have diffuse disease in its proximal segment with narrowing as much as 75% to 80% and totally occluded in its mid segment. SHARMA GRAFT TO LAD WITH FREE PEDICLE EMIR GRAFT TO 2ND OM ARTERIOGRAPHY: Widely patent with good anastomosis to both areas with competitive flow seen to the SHARMA graft from the eyak LAD. Competitive flow in the proximal segment of the obtuse marginal branch was noted but not in the distal segment. INTERVENTION INTO TOTALLY OCCLUDED VEIN GRAFT (AT MID AREA), TO RIGHT SIDED POSTERIOR DESCENDING ARTERY: Successful reconstitution of the mid total occlusion of the vein graft with stenting in the mid and proximal segment, however, significant diffuse disease seen in the distal segment of the vein graft noted, with lesions as much as 85 % noted. OVERALL ASSESSMENT: Successful interruption of the ST segment elevation inferior wall myocardial infarction with balloon angioplasty and stenting, however, diffuse disease is still present in the likelihood of long-term patency of this vein graft is probably poor at best. At this point in time, aggressive medical management for risk factor control and dual antiplatelet therapy will be pursued with continuation of his amlodipine for help with collateral blood flow dilatation. Of note, I did have a discussion with the patient's corporate ethics officer, Dr. Bell in [place], whom I had e-mailed the actual study and he himself was not of the opinion to attempt trying to deliver the distal stent in an unprotected fashion so as to try to reconstitute the whole vein graft given the significant diffuse disease and the small caliber of the posterior descending artery, for fear of high risk of distal embolization. [id number]/[facility] #: [id number] HEATHER
[2018-11-13] MEDS: Carvedilol TAB* 25 MG PO SCH ×2 (07:46→20:24)
[2018-11-13] MEDS: Losartan TAB* 25 MG PO SCH (07:46)
[2018-11-13] MEDS: amLODIPine TAB* 5 MG PO SCH (07:46)
[2018-11-13] MEDS: Ticagrelor* 90 MG TAB PO SCH ×2 (07:46→20:24)
[2018-11-13] MEDS: Aspirin 81 mg CHEW TAB* 81 MG TAB.CHEW PO SCH (07:46)
[2018-11-13] MEDS: CMCS: Ranolazine (NF) 500 MG TAB PO SCH ×2 (07:46→20:24)
[2018-11-13] MEDS: CMCS: Rosuvastatin (NF) 20 MG TAB PO SCH (07:50)
[2018-11-13] MEDS: Enoxaparin(*) 40 MG/0.4 ML SYR SUBCUT SCH (09:48)
[2018-11-13] MEDS: Ezetimibe TAB* 10 MG PO SCH (16:44)
[2018-11-13] MEDS: Acetaminophen TAB* 325 MG PO PRN (17:54)
[2018-11-14] MEDS: CMCS: Rosuvastatin (NF) 20 MG TAB PO SCH (08:01)
[2018-11-14] MEDS: Aspirin 81 mg CHEW TAB* 81 MG TAB.CHEW PO SCH (08:01)
[2018-11-14] MEDS: CMCS: Ranolazine (NF) 500 MG TAB PO SCH (08:01)
[2018-11-14] MEDS: Carvedilol TAB* 25 MG PO SCH (08:01)
[2018-11-14] MEDS: Ticagrelor* 90 MG TAB PO SCH (08:01)
[2018-11-14] MEDS: Losartan TAB* 25 MG PO SCH (08:01)
[2018-11-14] MEDS: Enoxaparin(*) 40 MG/0.4 ML SYR SUBCUT SCH (08:01)
[2018-11-14] MEDS: amLODIPine TAB* 5 MG PO SCH (08:01)
[2018-11-14 08:57] VITALS: BP 127/73
--- NOTE | 2018-11-14 10:36 | DS ---
CC: Dr. Mamadou Dobson; Dr. Sterling Bell, supervisor metalizing in [place], [place]* DISCHARGE SUMMARY: DATE OF ADMISSION: 11/11/18 DATE OF DISCHARGE: 11/14/18 FINAL DIAGNOSES: 1. Acute ST-segment elevation inferior wall myocardial infarction. 2. Stenotic coronary artery disease. 3. Prior bypass surgery in 2008 - vein graft to diagonal branch, vein graft to right PDA, SHARMA graft to LAD with free pedicle EMIR graft attached to SHARMA graft to the second obtuse marginal branch. 4. History of hypertension and hyperlipidemia. HOSPITAL COURSE: The patient is a pleasant 63-year-old gentleman, who presented in the throes of an acute ST-segment elevation inferior wall myocardial infarction. He had been having symptoms for at least 4 weeks escalating, culminating in rest discomfort that did not go away. Ambulance demonstrated acute ST-segment elevation mild by nature in the inferior wall with mild reciprocal change. In the emergency room, similar findings were noted. With continued symptoms, the risks and benefits of cardiac catheterization were explained and he went to cardiac catheterization. Please review cardiac catheterization for full report. It was noted in the catheter builder that the patient's main issue was that his [place] posterior descending artery was known to be occluded at its ostium chronically and the vein graft to this right- sided posterior descending artery was found to be totally occluded with proximal diffuse disease. There was no good description from any reports that I was able to obtain. As I went to the cardiovascular laboratory, from the on- call plumbing assembler at [facility] as to the nature of the distal vessel and he could not describe it to me as he could not see the images. We opted to attempt to open it and did open the vessel only to find it was diffusely diseased distally past the point where we could do any protective stenting. We did stent in the mid and proximal portion, restoring flow to this vessel, but clearly leaving diffuse disease past it. The posterior descending artery itself was a small caliber vessel. Also of note, his vein graft to the diagonal branch was totally occluded as best as I could tell from flush injections around the markers. There was no competitive flow seen. The SHARMA- EMIR graft was widely patent. His overall LV function was not significantly reduced; if anything, it was in the range of 45% and an echocardiogram that was performed on 11/12/18 was reported at 45% to 50% with hypokinesis of the basal, mid inferolateral wall with hypokinesis of the basal, mid inferior wall. The right ventricular systolic function reportedly was mildly reduced. There was trace mitral regurgitation. No other significant valvular disease. He was stable during the hospital course. His cardiac enzymes peaked with a CPK of 441 and a MB of 95.2 and a troponin of 12.99. His EKG on the day of discharge showed only a Q-wave inferiorly with a nonsignificant Q-wave in lead II. There was R-wave still present in II and aVF, albeit small in aVF. There was no significant reciprocal change seen in the lateral leads. He was up and about at the time of discharge. Vital signs revealed blood pressure of 130/76, pulse 71, respirations 14, and O2 saturation 96%. Neck was supple. No increased JVP. Lungs were clear. Heart had a regular rate and rhythm without murmur. Abdomen: Obese. Extremities: Without edema. The right groin area was well-healed with good pulses and no bruits. Neuro: The patient is alert and oriented with normal mentation. Musculoskeletal: The patient with normal gait. Psychiatric: The patient with normal affect. MEDICATIONS AT THE TIME OF DISCHARGE: Included maintaining his home medications: 1. Amlodipine 2.5 mg a day. 2. Carvedilol 25 mg twice a day. 3. Singulair. 4. Multi-Jordin. 5. Benicar 40 mg a day. 6. Ranexa 500 mg twice a day. 7. Rosuvastatin 40 mg a day. All continued. Additional medications included: 1. Zetia 10 mg a day. 2. Ticagrelor 90 mg twice a day. 3. Baby aspirin should be continued as well. The patient was given an education booklet and a stent card as well. The importance of the need for dual antiplatelet therapy was stressed multiple times with him and he understands it. He has a scheduled appointment for wound check in [address] Estrada, my partner, in addition to seeing his primary plumbing assembler, Dr. Bell in [place] in early November for his ongoing cardiac management. During the hospitalization I did discuss the patient with Dr. Bell and had emailed him the study . I have mailed a CD of the catheterization and echo to Dr. Bell and gave another copy to the patient along with the reports to personally hand deliver to Dr Bell when he sees in on November 29. All questions were answered to his satisfaction. He was stable at the time of discharge and was discharged to home. [id number]/[facility] #: [id number] HEATHER
--- NOTE | 2018-11-17 12:40 | HP ---
HISTORY AND PHYSICAL: ADDENDUM: Per request of Medical Records, additional information to be reported on the H and P. FAMILY HISTORY: Mother had cancer. Father had myocardial infarction. SOCIAL HISTORY: Ex-smoker who quit more than 12 years ago. [id number]/[facility] #[facility] [id number] [facility]
== END 2018-11-14 11:45 | disposition home or self-care (01) | DRG 247 ==
LOC: ED 18:43 → CHICATH 19:14 → ICU 21:31 → MEDTELE 11-13 08:32
PROVIDERS: ADMIT Internal Medicine Cardiovascular Disease; ATTEND Internal Medicine Cardiovascular Disease
PROC: B2131ZZ Fluoroscopy of Multiple Coronary Artery Bypass Grafts using Low Osmolar Contrast (ICD-10-PCS; 2018-11-11)
PROC: B2111ZZ Fluoroscopy of Multiple Coronary Arteries using Low Osmolar Contrast (ICD-10-PCS; 2018-11-11)
PROC: B2151ZZ Fluoroscopy of Left Heart using Low Osmolar Contrast (ICD-10-PCS; 2018-11-11)
PROC: 4A023N7 Measurement of Cardiac Sampling and Pressure, Left Heart, Percutaneous Approach (ICD-10-PCS; 2018-11-11)
PROC: 027035Z Dilation of Coronary Artery, One Artery with Two Drug-eluting Intraluminal Devices, Percutaneous Approach (ICD-10-PCS; principal; 2018-11-11 15:00)
DX: I21.19 ST elevation (STEMI) myocardial infarction involving other coronary artery of inferior wall (principal); I25.810 Atherosclerosis of coronary artery bypass graft(s) without angina pectoris; I25.10 Atherosclerotic heart disease of native coronary artery without angina pectoris; J30.2 Other seasonal allergic rhinitis; I10 Essential (primary) hypertension; E78.5 Hyperlipidemia, unspecified; I34.0 Nonrheumatic mitral (valve) insufficiency; Z79.02 Long term (current) use of antithrombotics/antiplatelets; Z79.82 Long term (current) use of aspirin; Z87.891 Personal history of nicotine dependence; Z80.9 Family history of malignant neoplasm, unspecified; Z95.1 Presence of aortocoronary bypass graft; Z82.49 Family history of ischemic heart disease and other diseases of the circulatory system; I25.2 Old myocardial infarction; Z95.5 Presence of coronary angioplasty implant and graft
CPT/HCPCS: 36415; 71045; 80053; 80061; 82550; 82553; 83605; 83721; 83880; 84484; 85025; 85347; 85610; 85730; 87641; 93005; 93306; 99285; A9270-GY; C1725; C1760; C1769; C1876; C1884; C1887; C9606-RC; J0153; J0583; J1644; J1650; J2250; J2270; J2405; J3010